=== PATIENT | female | born 1960 | race Caucasian/White ===

== ENCOUNTER → 2017-06-16 | Outpatient (CLI) | payer OTHER ==
[~2017-06-16] VITALS: Ht 170.2 cm; Wt 61.7 kg
[~2017-06-16] MED LIST: FOLIC ACID1 MG PO; GABAPENTIN PO; GABAPENTIN800 M1 PO; HUMIRA40 MG/0.8 SQ; HYDROXYCHLOROQ200 M1 PO; LYRICA 50 MG50 MG PO; METHOTREXATE 22.5 MG PO; PREMARIN0.45 MG PO; PROZAC20 MG PO; TRAMADOL 50 MG50 MG PO; TRAZODONE HCL100 MG PO; XANAX 0.5 MG0.5 MG PO
--- NOTE | ~2017-06-16 | HPC ---
[facility] [address] [address] PAIN MANAGEMENT CONSULTATION Name: EILEEN MCDERMOTT Room #: REG CYNTHIA LemonMoustaphaBecky.#: [id number] Admission: 06/16/17 Attend Phys: Jason Barnhart MD Discharge: Date of : 56 Report #: [id number] THIS REPORT FOR: //name// CC: Angel Barnhart DATE OF SERVICE: 06/16/2017 CHIEF COMPLAINT: Recurring low back pain. The patient returns to the pain clinic today with low back pain that radiates into her thighs as far as the knee. Pain is mostly in the anterior leg. She has had good response to previous epidural injections. Her last injection lasting well over 18 months. Pain is a 5/10, worse with standing and sitting. She gets relief with lying down. The patient suffers from fibromyalgia as well and rheumatoid arthritis. She is very inactive, does not like to exercise because it hurts. She recently sprained her ankle, which has made her more immobile. MEDICATIONS: Gabapentin, methotrexate, tramadol, folic acid and Humira. She does not want to take stronger pain medication. REVIEW OF SYSTEMS: Positive for nervousness, depression and insomnia. She has fatigue, weakness, joint pain. She suffers from nocturia. She denies cardio or respiratory difficulties. SOCIAL HISTORY: She is . Does not work outside of the home. She smokes a half a pack a day and has done so for many years and was counseled. She drinks alcohol once or twice a month in a social setting. She rarely exercises. PHYSICAL EXAMINATION: Very slender female, 21.3 BMI. Blood pressure 125/68, heart rate 84. She moves easily from a sitting to standing position, walks with slightly antalgic features. Examination of the spine reveals tenderness across the low back. Straight leg raising bilaterally positive, worse on the right. Sensation intact. Deep tendon reflexes are 2+ knees and ankles. IMPRESSION: 1. Recurring low back pain with radiculopathy. 2. Rheumatoid arthritis. 3. Fibromyalgia. 4. History of osteopenia. RECOMMENDATION: With such an excellent response to single epidural injection, I have recommended to repeat the injection today. Potential risks and benefits [facility] [address] [place] [address] PAIN MANAGEMENT CONSULTATION Name: EILEEN MCDERMOTT Ji Room #: REG [facility]#: [id number] Admission: 06/16/17 Attend Phys: Jason Barnhart MD Discharge: Date of : 56 Report #: [id number] discussed. PROCEDURE: She was taken to fluoroscopic suite, placed prone, skin prepped with ChloraPrep. Skin anesthetized over the L3-L4 interspace. A 20-gauge Tuohy epidural needle advanced first attempt in the epidural space with loss of resistance. There was no blood or CSF aspirated. 1 mL of Omnipaque injected. Good spread of dye was observed in the epidural space. This was followed by 3 mL of 0.5% lidocaine mixed with 80 mg of triamcinolone. She tolerated the procedure well and was observed for 45 minutes and discharged. Follow up as needed. By: [id number] Jason Barnhart MD /nt
[2017-06-16 10:42] VITALS: BP 125/68
== END | disposition home or self-care (01) ==
LOC: PAIN 05:39
DX: M54.16 Radiculopathy, lumbar region (principal); G89.29 Other chronic pain; M06.9 Rheumatoid arthritis, unspecified; M79.7 Fibromyalgia; F17.210 Nicotine dependence, cigarettes, uncomplicated; Z98.890 Other specified postprocedural states; Z87.39 Personal history of other diseases of the musculoskeletal system and connective tissue; Z88.8 Allergy status to other drugs, medicaments and biological substances; Z79.899 Other long term (current) drug therapy

== ENCOUNTER → 2017-08-25 | Outpatient (CLI) | payer OTHER ==
[~2017-08-25] VITALS: Ht 170.2 cm; Wt 60.3 kg
[~2017-08-25] MED LIST changes: +OXYCODONE-ACET1 EAC2 PO
--- NOTE | ~2017-08-25 | HPC ---
[facility] [address] [address] PAIN MANAGEMENT CONSULTATION Name: EILEEN MCDERMOTT Ji Room #: REG [facility] Roxi.#: [id number] Admission: 08/25/17 Attend Phys: Jason Barnhart MD Discharge: Date of : 56 Report #: [id number] THIS REPORT FOR: //name// CC: Angel Barnhart DATE OF SERVICE: 08/25/2017 Followup visit for severe right sacral pain. The patient returns to pain clinic today with her . We had about a 25-minute consultation regarding her pain. She had an epidural injection at her last response and with her last two injections, she has done beautifully with great relief. Unfortunately, she says she was much more active afterwards and she suddenly had an increase in pain. X-rays were performed and she has a stress fracture of her sacrum. In discussion today, we reviewed her previous heavy use of prednisone, which has predisposed her to osteopenia and compression fractures as well as sacral fracture. She has had two spinal related fractures within the last few years. I have asked her to speak with her primary care physician and she also is planning on seeing a side stitcher. They may want to consider the use of Forteo or Fosamax, but I would like to have them have that discussion with her, I rarely prescribe it. In regards to pain, she is not interested in taking stronger pain medication, although she should be cautious about nonsteroidal anti-inflammatory drugs. She has completed an opioid risk tool and is at [id number] risk for developing an addiction. I had a long talk with her today about our philosophy of pain management, which is located on our website and our most recent block at [facility]. Her pain today is localized to the left or midline in the area described on x-ray where edema associated with a vertebral body fracture on S2. There does bone destruction present. PHYSICAL EXAMINATION: Slender female with BMI of 21.4, blood pressure is 126/68, heart rate is 75. She can easily move from sitting to standing position, but walks with antalgic features. Examination of the low back reveals exquisite tenderness in the area described in the MRI of her sacral fracture. Straight leg raising is positive, worse on the right, but is better than it was prior to her last injection. IMPRESSION: 1. Chronic intractable pain with low back issues including radiculopathy and [facility] [address] [place] [address] PAIN MANAGEMENT CONSULTATION Name: EILEEN MCDERMOTT Ji [facility] [id number] Admission: 08/25/17 Attend Phys: Jason Barnhart MD Discharge: Date of : 56 Report #: [id number] now acute stress fracture of the sacrum around the S2 region. 2. Fibromyalgia. 3. Rheumatoid arthritis. 4. History of osteopenia. PLAN: I will provide injection of the sacroiliac joint and the sacral fracture with bupivacaine today at her request. I am going to do this without triamcinolone because of her risks of steroid-related osteopenia. Preauthorization was achieved. I provided her also with oxycodone 5/325, she should use this cautiously, no more than one to two tablets per day. Pain medication can be taken in anticipation of events. Her and she both admit that she has been very limited in her activities. We wanted to be cautious in activities but she cannot spend all day in bed. The goal of the medication is to allow her to do more. She will watch for side effects. We will manage her carefully under terms of an opioid agreement if we determine that this is a reasonable course of action going forward. Time spent in counseling with the patient today is about 25-30 minutes followed by the injection. PROCEDURE: She was taken to fluoroscopic suite, placed prone, skin was prepped with ChloraPrep. Skin anesthetized at the left SI joint. Using a 27-gauge needle, I gently injected along the sacroiliac joint ligaments and then along the posterior table of the sacrum in the region of the S2 foramen posterior a total of 6 mL of 0.5% bupivacaine. She tolerated the procedure well. She was observed for short time and discharged. Followup visit is planned in the pain clinic in one month. By: [id number] Jason Barnhart MD /nt
[2017-08-25 10:26] VITALS: BP 140/81
== END | disposition home or self-care (01) ==
LOC: PAIN 06:10
DX: M48.48XA Fatigue fracture of vertebra, sacral and sacrococcygeal region, initial encounter for fracture (principal); M54.16 Radiculopathy, lumbar region; G89.29 Other chronic pain; M79.7 Fibromyalgia; M06.9 Rheumatoid arthritis, unspecified; Z87.39 Personal history of other diseases of the musculoskeletal system and connective tissue; Z98.890 Other specified postprocedural states; Z79.891 Long term (current) use of opiate analgesic; F17.210 Nicotine dependence, cigarettes, uncomplicated; Z88.8 Allergy status to other drugs, medicaments and biological substances; Z79.899 Other long term (current) drug therapy